=== PATIENT | male | born 1965 | race Caucasian/White ===

== ENCOUNTER 2017-01-28 20:09 | Inpatient (IN) | payer MEDICARE, MEDICAID, SELFPAY ==
[~2017-01-28 20:09] MED LIST: ACETAMINOPHEN325 M2 PO; ADVIL200 M2 PO; ALBUTEROL0.63 MG/1 IH; ALBUTEROL2.5 MG/3 M IH; AMIODARONE HCL200 M1 PO; AUGMENTIN 875-1 EAC2 PO; BENADRYL25 M3 PO; CARDIZEM CD240 M1 PO; CHEMO; COMBIVENT RESPIM4 G1 INH; COMPAZINE10 MG PO; COMPAZINE25 M1 PR; CPAP; CULTURELLE1 EAC1 PO; DIFLUCAN100 M1 PO; DILTIAZEM 24HR240 M3 PO; DULERA 200 MCG/13 G1 INH; ELIQUIS5 M1 PO; GUAIFENESIN400 M1 PO; IBUPROFEN600 M1 PO; IPRAT-ALBUT 0.5-3 ML IH; IPRAT-ALBUT 0.5-3 ML INH; IPRAT-ALBUT 0.5-3 ML NEB; KLOR-CON20 MEQ PO; LASIX20 M1 PO; LASIX40 M1 PO; LEVAQUIN750 M1 PO; MUCINEX1200 MG PO; MULTIVITAMINS1 EAC6 PO; NICOTINE PATCH1 EAC2 TD; NICOTINE PATCH1 EAC2 TP; NORCO 5-325 TA1 EACH PO; PACERONE200 M1 PO; PREDNISONE10 M1 PO; PREDNISONE5 M1 PO; PRILOSEC40 M1 PO; PROAIR RESPICL90 MCG INH; SILVADENE20 G1 TOP; SOTALOL80 M1 PO; SPIRIVA18 MC1 INH; SYMBICORT 160-1 PUFF INH; WELLBUTRIN SR150 M2 PO; XOPENEX1.25 MG/2 INH; [UNRECOGNIZED DRUG - REMARK]
[2017-01-28 21:37] LABS: BASO % 0.1 % (0-2); HCT-HEMATOCRIT 33.5 % (36.0-53.5); HGB-HEMOGLOBIN 10.7 gm/dl (13.5-17.0); IMMATURE GRANULOCYTES ABSOLUTE 0.13 tho/cmm (0-0.03); IMMATURE GRANULOCYTES PERCENT 0.8 % (0-0.3); LYMPH % 4.8 % (20-45); LYMPH ABSOLUTE COUNT 0.7 tho/cmm (0.8-4.5); MCH (MEAN CORPUSCULAR HGB) 32.9 pg (28.0-32.0); MCHC MEAN CORPUSCULAR HGB CONC 31.9 % (32.0-36.0); MCV (MEAN CELL VOLUME) 103.1 fl (82.0-96.0); MEAN PLATELET VOLUME 9.8 cmc (9.4-12.4); MONO % 6.4 % (0-12); NEUTROPHIL ABSOLUTE COUNT 13.7 tho/cmm (1.6-8.0); NEUTROPHIL-AUTOMATED 13.7 tho/cmm (1.6-8.0); NEUTROPHILS % 87.9 % (40-80); PLATELET COUNT 298 tho/cmm (150-450); RED BLOOD COUNT 3.25 mil/cmm (4.40-5.70); RED CELL DISTRIBUTION WIDTH 22.8 % (12.4-16.4); WHITE BLOOD COUNT 15.5 tho/cmm (4.0-10.0)
[2017-01-28 21:50] LABS: ANION GAP 13 mmol/L (0-20); BLOOD UREA NITROGEN 29 mg/dl (6-24); CARBON DIOXIDE-VENOUS 29 mmol/L (22-32); CHLORIDE 104 mmol/l (96-110); GLUCOSE 101 mg/dL (70-110); POTASSIUM 3.9 mmol/L (3.7-5.1); SODIUM 142 mmol/L (135-145); eGFR VALUE FOR BLACK 89 mL/Min
[2017-01-28] MEDS ORDERED: ULTRAM50 M1 PO (22:02)
[2017-01-29 06:25] LABS: BASO % 0.1 % (0-2); HCT-HEMATOCRIT 29.7 % (36.0-53.5); HGB-HEMOGLOBIN 9.4 gm/dl (13.5-17.0); IMMATURE GRANULOCYTES ABSOLUTE 0.07 tho/cmm (0-0.03); IMMATURE GRANULOCYTES PERCENT 0.7 % (0-0.3); LYMPH % 2.2 % (20-45); LYMPH ABSOLUTE COUNT 0.2 tho/cmm (0.8-4.5); MCH (MEAN CORPUSCULAR HGB) 32.3 pg (28.0-32.0); MCHC MEAN CORPUSCULAR HGB CONC 31.6 % (32.0-36.0); MCV (MEAN CELL VOLUME) 102.1 fl (82.0-96.0); MEAN PLATELET VOLUME 9.5 cmc (9.4-12.4); MONO % 2.9 % (0-12); MONOCYTE ABSOLUTE COUNT 0.3 tho/cmm (0.0-1.2); NEUTROPHIL ABSOLUTE COUNT 9.8 tho/cmm (1.6-8.0); NEUTROPHIL-AUTOMATED 9.8 tho/cmm (1.6-8.0); NEUTROPHILS % 94.1 % (40-80); PLATELET COUNT 232 tho/cmm (150-450); RED BLOOD COUNT 2.91 mil/cmm (4.40-5.70); RED CELL DISTRIBUTION WIDTH 22.7 % (12.4-16.4)
[2017-01-29 07:19] LABS: HCT-HEMATOCRIT 29.4 % (36.0-53.5); HGB-HEMOGLOBIN 9.5 gm/dl (13.5-17.0); MCH (MEAN CORPUSCULAR HGB) 32.6 pg (28.0-32.0); MCHC MEAN CORPUSCULAR HGB CONC 32.3 % (32.0-36.0); MEAN PLATELET VOLUME 9.8 cmc (9.4-12.4); NEUTROPHIL-AUTOMATED 10.2 tho/cmm (1.6-8.0); PLATELET COUNT 228 tho/cmm (150-450); RED BLOOD COUNT 2.91 mil/cmm (4.40-5.70); RED CELL DISTRIBUTION WIDTH 22.2 % (12.4-16.4); WHITE BLOOD COUNT 10.9 tho/cmm (4.0-10.0)
[2017-01-29 07:30] LABS: WHITE BLOOD COUNT 10.4 tho/cmm (4.0-10.0)
[2017-01-29 07:39] LABS: ALB/GLOB RATIO 1.1 (0.8-2.0); ALBUMIN 2.8 g/dl (3.5-5.0); ALKALINE PHOSPHATASE 121 U/L (33-138); ALT/SGPT 60 U/L (12-78); BILIRUBIN,TOTAL 0.6 mg/dl (0.0-1.5); BLOOD UREA NITROGEN 30 mg/dl (6-24); CALCIUM 8.2 mg/dl (8.5-10.5); CARBON DIOXIDE-VENOUS 30 mmol/L (22-32); CHLORIDE 103 mmol/l (96-110); GLUCOSE 118 mg/dL (70-110); SODIUM 141 mmol/L (135-145); eGFR VALUE FOR BLACK 89 mL/Min
[2017-01-29 07:43] LABS: ANION GAP 12 mmol/L (0-20); AST/SGOT 52 U/L (10-40); POTASSIUM 4.1 mmol/L (3.7-5.1)
[2017-01-30 04:43] LABS: ABG CO2 ARTERIAL 33 mmol/L (21-27); ARTERIAL BLD GAS O2 SATURATION 86 % (95-98); ARTERIAL BLOOD GAS PCO2 47 mmHg (32-45); ARTERIAL PO2 55 mmHg (70-100); BICARBONATE 32 mmol/L (21-28); BLOOD GAS BASE EXCESS 7 mM/L (-/+3); PH 7.44 Units (7.35-7.45)
[2017-01-30 07:50] LABS: BASO % 0.1 % (0-2); HCT-HEMATOCRIT 33.3 % (36.0-53.5); HGB-HEMOGLOBIN 10.5 gm/dl (13.5-17.0); LYMPH % 1.7 % (20-45); LYMPH ABSOLUTE COUNT 0.3 tho/cmm (0.8-4.5); MCH (MEAN CORPUSCULAR HGB) 32.8 pg (28.0-32.0); MCHC MEAN CORPUSCULAR HGB CONC 31.5 % (32.0-36.0); MCV (MEAN CELL VOLUME) 104.1 fl (82.0-96.0); MEAN PLATELET VOLUME 10.1 cmc (9.4-12.4); MONO % 5.8 % (0-12); MONOCYTE ABSOLUTE COUNT 0.9 tho/cmm (0.0-1.2); NEUTROPHILS % 92.4 % (40-80); PLATELET COUNT 255 tho/cmm (150-450); RED CELL DISTRIBUTION WIDTH 22.2 % (12.4-16.4); WHITE BLOOD COUNT 15.1 tho/cmm (4.0-10.0)
[2017-01-30 07:57] LABS: ANION GAP 16 mmol/L (0-20); BLOOD UREA NITROGEN 40 mg/dl (6-24); CALCIUM 8.5 mg/dl (8.5-10.5); CARBON DIOXIDE-VENOUS 28 mmol/L (22-32); CHLORIDE 101 mmol/l (96-110); GLUCOSE 101 mg/dL (70-110); POTASSIUM 4.1 mmol/L (3.7-5.1); SODIUM 141 mmol/L (135-145); eGFR VALUE FOR BLACK 80 mL/Min
[2017-01-31 04:40] LABS: ANION GAP 11 mmol/L (0-20); BLOOD UREA NITROGEN 45 mg/dl (6-24); CALCIUM 7.8 mg/dl (8.5-10.5); CARBON DIOXIDE-VENOUS 36 mmol/L (22-32); CHLORIDE 97 mmol/l (96-110); CREATININE 1.34 mg/dl (0.60-1.30); GLUCOSE 115 mg/dL (70-110); POTASSIUM 3.5 mmol/L (3.7-5.1); SODIUM 140 mmol/L (135-145); eGFR VALUE FOR BLACK 70 mL/Min
[2017-01-31 05:20] LABS: BASO % 0.1 % (0-2); HCT-HEMATOCRIT 31.6 % (36.0-53.5); IMMATURE GRANULOCYTES ABSOLUTE 0.15 tho/cmm (0-0.03); IMMATURE GRANULOCYTES PERCENT 1.1 % (0-0.3); LYMPH % 1.2 % (20-45); LYMPH ABSOLUTE COUNT 0.2 tho/cmm (0.8-4.5); MCH (MEAN CORPUSCULAR HGB) 32.4 pg (28.0-32.0); MCHC MEAN CORPUSCULAR HGB CONC 31.6 % (32.0-36.0); MCV (MEAN CELL VOLUME) 102.3 fl (82.0-96.0); MEAN PLATELET VOLUME 9.6 cmc (9.4-12.4); MONO % 6.6 % (0-12); MONOCYTE ABSOLUTE COUNT 0.9 tho/cmm (0.0-1.2); NEUTROPHIL ABSOLUTE COUNT 12.8 tho/cmm (1.6-8.0); NEUTROPHIL-AUTOMATED 12.8 tho/cmm (1.6-8.0); PLATELET COUNT 205 tho/cmm (150-450); RED BLOOD COUNT 3.09 mil/cmm (4.40-5.70); WHITE BLOOD COUNT 14.1 tho/cmm (4.0-10.0)
[2017-02-01 06:12] LABS: BASO % 0.1 % (0-2); HCT-HEMATOCRIT 31.6 % (36.0-53.5); HGB-HEMOGLOBIN 10.1 gm/dl (13.5-17.0); IMMATURE GRANULOCYTES ABSOLUTE 0.14 tho/cmm (0-0.03); IMMATURE GRANULOCYTES PERCENT 1.1 % (0-0.3); LYMPH % 2.7 % (20-45); LYMPH ABSOLUTE COUNT 0.4 tho/cmm (0.8-4.5); MCH (MEAN CORPUSCULAR HGB) 32.5 pg (28.0-32.0); MCV (MEAN CELL VOLUME) 101.6 fl (82.0-96.0); MEAN PLATELET VOLUME 10.2 cmc (9.4-12.4); MONOCYTE ABSOLUTE COUNT 0.7 tho/cmm (0.0-1.2); NEUTROPHIL ABSOLUTE COUNT 11.9 tho/cmm (1.6-8.0); NEUTROPHIL-AUTOMATED 11.9 tho/cmm (1.6-8.0); NEUTROPHILS % 91.1 % (40-80); PLATELET COUNT 176 tho/cmm (150-450); RED BLOOD COUNT 3.11 mil/cmm (4.40-5.70); RED CELL DISTRIBUTION WIDTH 21.9 % (12.4-16.4)
[2017-02-01 06:24] LABS: ANION GAP 12 mmol/L (0-20); BLOOD UREA NITROGEN 44 mg/dl (6-24); CALCIUM 7.7 mg/dl (8.5-10.5); CARBON DIOXIDE-VENOUS 37 mmol/L (22-32); CHLORIDE 96 mmol/l (96-110); CREATININE 1.19 mg/dl (0.60-1.30); GLUCOSE 168 mg/dL (70-110); POTASSIUM 3.1 mmol/L (3.7-5.1); SODIUM 142 mmol/L (135-145); eGFR VALUE FOR BLACK 81 mL/Min
[2017-02-02 06:40] LABS: ANION GAP 11 mmol/L (0-20); CALCIUM 7.9 mg/dl (8.5-10.5); CARBON DIOXIDE-VENOUS 36 mmol/L (22-32); CHLORIDE 96 mmol/l (96-110); SODIUM 139 mmol/L (135-145)
[2017-02-02 06:44] LABS: BLOOD UREA NITROGEN 45 mg/dl (6-24); CREATININE 1.11 mg/dl (0.60-1.30); GLUCOSE 118 mg/dL (70-110); eGFR VALUE FOR BLACK 88 mL/Min
[2017-02-02 07:11] LABS: POTASSIUM 3.7 mmol/L (3.7-5.1)
[2017-02-03 04:58] LABS: ANION GAP 9 mmol/L (0-20); BLOOD UREA NITROGEN 46 mg/dl (6-24); CALCIUM 7.8 mg/dl (8.5-10.5); CARBON DIOXIDE-VENOUS 37 mmol/L (22-32); CHLORIDE 99 mmol/l (96-110); CREATININE 1.17 mg/dl (0.60-1.30); GLUCOSE 119 mg/dL (70-110); POTASSIUM 3.7 mmol/L (3.7-5.1); SODIUM 141 mmol/L (135-145); eGFR VALUE FOR BLACK 83 mL/Min
[2017-02-04 04:57] LABS: INR 1.3 INR (0.9-1.1); PROTHROMBIN TIME 14.8 SECONDS (9.0-13.6)
[2017-02-04 05:09] LABS: ANION GAP 9 mmol/L (0-20); BLOOD UREA NITROGEN 49 mg/dl (6-24); CARBON DIOXIDE-VENOUS 36 mmol/L (22-32); CHLORIDE 100 mmol/l (96-110); CREATININE 1.23 mg/dl (0.60-1.30); GLUCOSE 110 mg/dL (70-110); MAGNESIUM 1.5 mg/dl (1.3-2.6); SODIUM 141 mmol/L (135-145); eGFR VALUE FOR BLACK 78 mL/Min
[2017-02-04 05:20] LABS: BASO % 0.2 % (0-2); EOS % 0.1 % (0-7); HGB-HEMOGLOBIN 10.3 gm/dl (13.5-17.0); IMMATURE GRANULOCYTES ABSOLUTE 0.16 tho/cmm (0-0.03); IMMATURE GRANULOCYTES PERCENT 1.3 % (0-0.3); LYMPH % 3.7 % (20-45); LYMPH ABSOLUTE COUNT 0.5 tho/cmm (0.8-4.5); MCH (MEAN CORPUSCULAR HGB) 32.9 pg (28.0-32.0); MCHC MEAN CORPUSCULAR HGB CONC 32.2 % (32.0-36.0); MCV (MEAN CELL VOLUME) 102.2 fl (82.0-96.0); MEAN PLATELET VOLUME 10.4 cmc (9.4-12.4); MONO % 4.9 % (0-12); MONOCYTE ABSOLUTE COUNT 0.6 tho/cmm (0.0-1.2); NEUTROPHIL ABSOLUTE COUNT 10.9 tho/cmm (1.6-8.0); NEUTROPHIL-AUTOMATED 10.9 tho/cmm (1.6-8.0); NEUTROPHILS % 89.8 % (40-80); PLATELET COUNT 122 tho/cmm (150-450); RED BLOOD COUNT 3.13 mil/cmm (4.40-5.70); RED CELL DISTRIBUTION WIDTH 21.4 % (12.4-16.4); WHITE BLOOD COUNT 12.2 tho/cmm (4.0-10.0)
[2017-02-05 03:23] LABS: INR 1.1 INR (0.9-1.1); PROTHROMBIN TIME 13.3 SECONDS (9.0-13.6)
[2017-02-05 03:52] LABS: BASO % 0.2 % (0-2); HCT-HEMATOCRIT 36.1 % (36.0-53.5); HGB-HEMOGLOBIN 11.5 gm/dl (13.5-17.0); LYMPH % 5.4 % (20-45); LYMPH ABSOLUTE COUNT 1.1 tho/cmm (0.8-4.5); MCH (MEAN CORPUSCULAR HGB) 32.6 pg (28.0-32.0); MCHC MEAN CORPUSCULAR HGB CONC 31.9 % (32.0-36.0); MCV (MEAN CELL VOLUME) 102.3 fl (82.0-96.0); MEAN PLATELET VOLUME 10.3 cmc (9.4-12.4); MONO % 8.4 % (0-12); MONOCYTE ABSOLUTE COUNT 1.6 tho/cmm (0.0-1.2); NEUTROPHIL ABSOLUTE COUNT 16.6 tho/cmm (1.6-8.0); NEUTROPHIL-AUTOMATED 16.6 tho/cmm (1.6-8.0); PLATELET COUNT 121 tho/cmm (150-450); RED BLOOD COUNT 3.53 mil/cmm (4.40-5.70); RED CELL DISTRIBUTION WIDTH 21.5 % (12.4-16.4)
[2017-02-05 04:01] LABS: ANION GAP 9 mmol/L (0-20); BLOOD UREA NITROGEN 54 mg/dl (6-24); CALCIUM 8.4 mg/dl (8.5-10.5); CARBON DIOXIDE-VENOUS 34 mmol/L (22-32); CHLORIDE 102 mmol/l (96-110); CREATININE 1.43 mg/dl (0.60-1.30); GLUCOSE 153 mg/dL (70-110); MAGNESIUM 1.6 mg/dl (1.3-2.6); SODIUM 141 mmol/L (135-145); WHITE BLOOD COUNT 19.5 tho/cmm (4.0-10.0); eGFR VALUE FOR BLACK 65 mL/Min
[2017-02-06 04:59] LABS: BASO % 0.2 % (0-2); EOS % 0.1 % (0-7); HCT-HEMATOCRIT 33.2 % (36.0-53.5); HGB-HEMOGLOBIN 10.7 gm/dl (13.5-17.0); IMMATURE GRANULOCYTES ABSOLUTE 0.15 tho/cmm (0-0.03); IMMATURE GRANULOCYTES PERCENT 1.1 % (0-0.3); LYMPH ABSOLUTE COUNT 0.4 tho/cmm (0.8-4.5); MCH (MEAN CORPUSCULAR HGB) 32.5 pg (28.0-32.0); MCHC MEAN CORPUSCULAR HGB CONC 32.2 % (32.0-36.0); MCV (MEAN CELL VOLUME) 100.9 fl (82.0-96.0); MEAN PLATELET VOLUME 10.9 cmc (9.4-12.4); MONO % 4.4 % (0-12); MONOCYTE ABSOLUTE COUNT 0.6 tho/cmm (0.0-1.2); NEUTROPHIL ABSOLUTE COUNT 11.9 tho/cmm (1.6-8.0); NEUTROPHIL-AUTOMATED 11.9 tho/cmm (1.6-8.0); NEUTROPHILS % 91.2 % (40-80); PLATELET COUNT 102 tho/cmm (150-450); RED BLOOD COUNT 3.29 mil/cmm (4.40-5.70); RED CELL DISTRIBUTION WIDTH 21.3 % (12.4-16.4); WHITE BLOOD COUNT 13.1 tho/cmm (4.0-10.0)
[2017-02-06 05:00] LABS: INR 1.3 INR (0.9-1.1); PROTHROMBIN TIME 15.4 SECONDS (9.0-13.6)
[2017-02-06 05:33] LABS: ANION GAP 10 mmol/L (0-20); BLOOD UREA NITROGEN 47 mg/dl (6-24); CARBON DIOXIDE-VENOUS 30 mmol/L (22-32); CHLORIDE 101 mmol/l (96-110); CREATININE 1.07 mg/dl (0.60-1.30); GLUCOSE 106 mg/dL (70-110); POTASSIUM 4.3 mmol/L (3.7-5.1); SODIUM 137 mmol/L (135-145); eGFR VALUE FOR BLACK >90 mL/Min
[2017-02-07 05:45] LABS: BASO % 0.1 % (0-2); HCT-HEMATOCRIT 29.6 % (36.0-53.5); HGB-HEMOGLOBIN 9.8 gm/dl (13.5-17.0); IMMATURE GRANULOCYTES ABSOLUTE 0.14 tho/cmm (0-0.03); IMMATURE GRANULOCYTES PERCENT 0.8 % (0-0.3); LYMPH % 2.1 % (20-45); LYMPH ABSOLUTE COUNT 0.4 tho/cmm (0.8-4.5); MCH (MEAN CORPUSCULAR HGB) 33.1 pg (28.0-32.0); MCHC MEAN CORPUSCULAR HGB CONC 33.1 % (32.0-36.0); MEAN PLATELET VOLUME 10.4 cmc (9.4-12.4); MONO % 3.7 % (0-12); MONOCYTE ABSOLUTE COUNT 0.6 tho/cmm (0.0-1.2); NEUTROPHIL ABSOLUTE COUNT 15.8 tho/cmm (1.6-8.0); NEUTROPHIL-AUTOMATED 15.8 tho/cmm (1.6-8.0); NEUTROPHILS % 93.3 % (40-80); PLATELET COUNT 93 tho/cmm (150-450); RED BLOOD COUNT 2.96 mil/cmm (4.40-5.70); RED CELL DISTRIBUTION WIDTH 21.1 % (12.4-16.4); WHITE BLOOD COUNT 16.9 tho/cmm (4.0-10.0)
[2017-02-07 05:49] LABS: ANION GAP 10 mmol/L (0-20); BLOOD UREA NITROGEN 50 mg/dl (6-24); CALCIUM 8.1 mg/dl (8.5-10.5); CARBON DIOXIDE-VENOUS 33 mmol/L (22-32); CHLORIDE 100 mmol/l (96-110); CREATININE 1.15 mg/dl (0.60-1.30); GLUCOSE 131 mg/dL (70-110); POTASSIUM 3.8 mmol/L (3.7-5.1); SODIUM 139 mmol/L (135-145); eGFR VALUE FOR BLACK 84 mL/Min
[2017-02-07 18:24] LABS: BASO % 0.1 % (0-2); HCT-HEMATOCRIT 35.5 % (36.0-53.5); HGB-HEMOGLOBIN 11.5 gm/dl (13.5-17.0); LYMPH % 3.8 % (20-45); LYMPH ABSOLUTE COUNT 1.2 tho/cmm (0.8-4.5); MCH (MEAN CORPUSCULAR HGB) 32.4 pg (28.0-32.0); MCHC MEAN CORPUSCULAR HGB CONC 32.4 % (32.0-36.0); MEAN PLATELET VOLUME 10.6 cmc (9.4-12.4); MONO % 4.7 % (0-12); MONOCYTE ABSOLUTE COUNT 1.5 tho/cmm (0.0-1.2); NEUTROPHIL ABSOLUTE COUNT 28.4 tho/cmm (1.6-8.0); NEUTROPHIL-AUTOMATED 28.4 tho/cmm (1.6-8.0); NEUTROPHILS % 90.4 % (40-80); PLATELET COUNT 125 tho/cmm (150-450); RED BLOOD COUNT 3.55 mil/cmm (4.40-5.70); RED CELL DISTRIBUTION WIDTH 20.8 % (12.4-16.4)
[2017-02-07 18:28] LABS: WHITE BLOOD COUNT 31.5 tho/cmm (4.0-10.0)
[2017-02-07 18:58] LABS: INR 1.3 INR (0.9-1.1); PROTHROMBIN TIME 15.8 SECONDS (9.0-13.6)
[2017-02-07 20:34] LABS: PF4 (HIT) ANTIBODY POSITIVE (NEGATIVE)
[2017-02-08 05:26] LABS: BASO % 0.1 % (0-2); HCT-HEMATOCRIT 32.1 % (36.0-53.5); HGB-HEMOGLOBIN 10.5 gm/dl (13.5-17.0); IMMATURE GRANULOCYTES ABSOLUTE 0.16 tho/cmm (0-0.03); IMMATURE GRANULOCYTES PERCENT 0.7 % (0-0.3); LYMPH % 4.8 % (20-45); LYMPH ABSOLUTE COUNT 1.2 tho/cmm (0.8-4.5); MCH (MEAN CORPUSCULAR HGB) 32.8 pg (28.0-32.0); MCHC MEAN CORPUSCULAR HGB CONC 32.7 % (32.0-36.0); MCV (MEAN CELL VOLUME) 100.3 fl (82.0-96.0); MEAN PLATELET VOLUME 10.8 cmc (9.4-12.4); MONO % 4.6 % (0-12); MONOCYTE ABSOLUTE COUNT 1.1 tho/cmm (0.0-1.2); NEUTROPHIL ABSOLUTE COUNT 21.5 tho/cmm (1.6-8.0); NEUTROPHIL-AUTOMATED 21.5 tho/cmm (1.6-8.0); NEUTROPHILS % 89.8 % (40-80); PLATELET COUNT 103 tho/cmm (150-450); RED CELL DISTRIBUTION WIDTH 20.9 % (12.4-16.4); WHITE BLOOD COUNT 23.9 tho/cmm (4.0-10.0)
[2017-02-08 13:45] LABS: ANION GAP 15 mmol/L (0-20); BLOOD UREA NITROGEN 44 mg/dl (6-24); CALCIUM 8.4 mg/dl (8.5-10.5); CARBON DIOXIDE-VENOUS 30 mmol/L (22-32); CHLORIDE 100 mmol/l (96-110); CREATININE 1.36 mg/dl (0.60-1.30); POTASSIUM 4.5 mmol/L (3.7-5.1); SODIUM 140 mmol/L (135-145); eGFR VALUE FOR BLACK 69 mL/Min
[2017-02-08 13:48] LABS: GLUCOSE 226 mg/dL (70-110)
[2017-02-08 17:06] LABS: ABG CO2 ARTERIAL 33 mmol/L (21-27); ARTERIAL BLD GAS O2 SATURATION 96 % (95-98); ARTERIAL BLOOD GAS PCO2 41 mmHg (32-45); ARTERIAL PO2 85 mmHg (70-100); BICARBONATE 31 mmol/L (21-28); BLOOD GAS BASE EXCESS 8 mM/L (-/+3); PH 7.49 Units (7.35-7.45)
[2017-02-09 05:28] LABS: BASO % 0.1 % (0-2); EOS % 0.3 % (0-7); EOSINOPHIL ABSOLUTE COUNT 0.1 tho/cmm (0.0-0.7); HCT-HEMATOCRIT 31.8 % (36.0-53.5); HGB-HEMOGLOBIN 10.4 gm/dl (13.5-17.0); IMMATURE GRANULOCYTES ABSOLUTE 0.24 tho/cmm (0-0.03); IMMATURE GRANULOCYTES PERCENT 1.3 % (0-0.3); LYMPH % 3.9 % (20-45); LYMPH ABSOLUTE COUNT 0.7 tho/cmm (0.8-4.5); MCH (MEAN CORPUSCULAR HGB) 33.2 pg (28.0-32.0); MCHC MEAN CORPUSCULAR HGB CONC 32.7 % (32.0-36.0); MCV (MEAN CELL VOLUME) 101.6 fl (82.0-96.0); MEAN PLATELET VOLUME 10.6 cmc (9.4-12.4); MONO % 6.3 % (0-12); MONOCYTE ABSOLUTE COUNT 1.2 tho/cmm (0.0-1.2); NEUTROPHIL ABSOLUTE COUNT 16.1 tho/cmm (1.6-8.0); NEUTROPHIL-AUTOMATED 16.1 tho/cmm (1.6-8.0); NEUTROPHILS % 88.1 % (40-80); PLATELET COUNT 104 tho/cmm (150-450); RED BLOOD COUNT 3.13 mil/cmm (4.40-5.70); WHITE BLOOD COUNT 18.3 tho/cmm (4.0-10.0)
[2017-02-09 05:33] LABS: ANION GAP 9 mmol/L (0-20); BLOOD UREA NITROGEN 40 mg/dl (6-24); CALCIUM 8.4 mg/dl (8.5-10.5); CARBON DIOXIDE-VENOUS 34 mmol/L (22-32); CHLORIDE 103 mmol/l (96-110); CREATININE 1.05 mg/dl (0.60-1.30); POTASSIUM 4.1 mmol/L (3.7-5.1); SODIUM 142 mmol/L (135-145); eGFR VALUE FOR BLACK >90 mL/Min
[2017-02-09 05:43] LABS: GLUCOSE 107 mg/dL (70-110)
[2017-02-10 05:51] LABS: BASO % 0.1 % (0-2); HCT-HEMATOCRIT 30.4 % (36.0-53.5); HGB-HEMOGLOBIN 9.9 gm/dl (13.5-17.0); IMMATURE GRANULOCYTES ABSOLUTE 0.15 tho/cmm (0-0.03); IMMATURE GRANULOCYTES PERCENT 0.8 % (0-0.3); LYMPH % 0.9 % (20-45); LYMPH ABSOLUTE COUNT 0.2 tho/cmm (0.8-4.5); MCH (MEAN CORPUSCULAR HGB) 33.1 pg (28.0-32.0); MCHC MEAN CORPUSCULAR HGB CONC 32.6 % (32.0-36.0); MCV (MEAN CELL VOLUME) 101.7 fl (82.0-96.0); MEAN PLATELET VOLUME 10.2 cmc (9.4-12.4); MONO % 5.2 % (0-12); NEUTROPHIL ABSOLUTE COUNT 17.5 tho/cmm (1.6-8.0); NEUTROPHIL-AUTOMATED 17.5 tho/cmm (1.6-8.0); PLATELET COUNT 108 tho/cmm (150-450); RED BLOOD COUNT 2.99 mil/cmm (4.40-5.70); RED CELL DISTRIBUTION WIDTH 20.5 % (12.4-16.4); WHITE BLOOD COUNT 18.8 tho/cmm (4.0-10.0)
[2017-02-10 06:03] LABS: ANION GAP 6 mmol/L (0-20); BLOOD UREA NITROGEN 34 mg/dl (6-24); CALCIUM 8.1 mg/dl (8.5-10.5); CARBON DIOXIDE-VENOUS 36 mmol/L (22-32); CHLORIDE 102 mmol/l (96-110); CREATININE 0.74 mg/dl (0.60-1.30); GLUCOSE 124 mg/dL (70-110); POTASSIUM 4.4 mmol/L (3.7-5.1); SODIUM 140 mmol/L (135-145); eGFR VALUE FOR BLACK >90 mL/Min
[2017-02-11 05:31] LABS: BASO % 0.1 % (0-2); EOS % 0.3 % (0-7); EOSINOPHIL ABSOLUTE COUNT 0.1 tho/cmm (0.0-0.7); HCT-HEMATOCRIT 30.5 % (36.0-53.5); IMMATURE GRANULOCYTES PERCENT 1.3 % (0-0.3); LYMPH % 1.2 % (20-45); LYMPH ABSOLUTE COUNT 0.2 tho/cmm (0.8-4.5); MCH (MEAN CORPUSCULAR HGB) 32.9 pg (28.0-32.0); MCHC MEAN CORPUSCULAR HGB CONC 32.8 % (32.0-36.0); MCV (MEAN CELL VOLUME) 100.3 fl (82.0-96.0); MEAN PLATELET VOLUME 10.3 cmc (9.4-12.4); MONO % 6.2 % (0-12); NEUTROPHIL ABSOLUTE COUNT 14.5 tho/cmm (1.6-8.0); NEUTROPHIL-AUTOMATED 14.5 tho/cmm (1.6-8.0); NEUTROPHILS % 90.9 % (40-80); PLATELET COUNT 94 tho/cmm (150-450); RED BLOOD COUNT 3.04 mil/cmm (4.40-5.70); RED CELL DISTRIBUTION WIDTH 20.2 % (12.4-16.4)
[2017-02-11 05:49] LABS: ANION GAP 9 mmol/L (0-20); BLOOD UREA NITROGEN 28 mg/dl (6-24); CALCIUM 8.4 mg/dl (8.5-10.5); CARBON DIOXIDE-VENOUS 33 mmol/L (22-32); CHLORIDE 101 mmol/l (96-110); CREATININE 0.78 mg/dl (0.60-1.30); GLUCOSE 111 mg/dL (70-110); POTASSIUM 4.1 mmol/L (3.7-5.1); SODIUM 139 mmol/L (135-145); eGFR VALUE FOR BLACK >90 mL/Min
[2017-02-12 04:51] LABS: BASO % 0.1 % (0-2); EOS % 0.5 % (0-7); EOSINOPHIL ABSOLUTE COUNT 0.1 tho/cmm (0.0-0.7); HCT-HEMATOCRIT 31.2 % (36.0-53.5); HGB-HEMOGLOBIN 10.2 gm/dl (13.5-17.0); IMMATURE GRANULOCYTES ABSOLUTE 0.19 tho/cmm (0-0.03); IMMATURE GRANULOCYTES PERCENT 1.1 % (0-0.3); LYMPH % 1.9 % (20-45); LYMPH ABSOLUTE COUNT 0.3 tho/cmm (0.8-4.5); MCHC MEAN CORPUSCULAR HGB CONC 32.7 % (32.0-36.0); MEAN PLATELET VOLUME 10.6 cmc (9.4-12.4); MONO % 6.5 % (0-12); MONOCYTE ABSOLUTE COUNT 1.2 tho/cmm (0.0-1.2); NEUTROPHILS % 89.9 % (40-80); PLATELET COUNT 111 tho/cmm (150-450); RED BLOOD COUNT 3.09 mil/cmm (4.40-5.70); RED CELL DISTRIBUTION WIDTH 20.5 % (12.4-16.4); WHITE BLOOD COUNT 17.8 tho/cmm (4.0-10.0)
[2017-02-13 06:29] LABS: BASO % 0.1 % (0-2); EOS % 0.6 % (0-7); EOSINOPHIL ABSOLUTE COUNT 0.1 tho/cmm (0.0-0.7); HCT-HEMATOCRIT 32.8 % (36.0-53.5); HGB-HEMOGLOBIN 10.9 gm/dl (13.5-17.0); IMMATURE GRANULOCYTES ABSOLUTE 0.19 tho/cmm (0-0.03); LYMPH % 3.8 % (20-45); LYMPH ABSOLUTE COUNT 0.7 tho/cmm (0.8-4.5); MCH (MEAN CORPUSCULAR HGB) 33.1 pg (28.0-32.0); MCHC MEAN CORPUSCULAR HGB CONC 33.2 % (32.0-36.0); MCV (MEAN CELL VOLUME) 99.7 fl (82.0-96.0); MEAN PLATELET VOLUME 9.7 cmc (9.4-12.4); MONO % 3.9 % (0-12); MONOCYTE ABSOLUTE COUNT 0.8 tho/cmm (0.0-1.2); NEUTROPHIL ABSOLUTE COUNT 17.2 tho/cmm (1.6-8.0); NEUTROPHIL-AUTOMATED 17.2 tho/cmm (1.6-8.0); NEUTROPHILS % 90.6 % (40-80); PLATELET COUNT 117 tho/cmm (150-450); RED BLOOD COUNT 3.29 mil/cmm (4.40-5.70); RED CELL DISTRIBUTION WIDTH 20.3 % (12.4-16.4)
[2017-02-13 06:44] LABS: ANION GAP 10 mmol/L (0-20); BLOOD UREA NITROGEN 31 mg/dl (6-24); CALCIUM 8.6 mg/dl (8.5-10.5); CARBON DIOXIDE-VENOUS 30 mmol/L (22-32); CHLORIDE 102 mmol/l (96-110); CREATININE 0.81 mg/dl (0.60-1.30); GLUCOSE 96 mg/dL (70-110); POTASSIUM 4.3 mmol/L (3.7-5.1); SODIUM 138 mmol/L (135-145); eGFR VALUE FOR BLACK >90 mL/Min
[2017-02-13] MEDS ORDERED: BROVANA15 MCG/22 INH (13:46)
[2017-02-13] MEDS ORDERED: CATAPRES0.2 M1 PO (13:48)
[2017-02-13] MEDS ORDERED: BYSTOLIC5 M1 PO (13:49)
[2017-02-13] MEDS ORDERED: POTASSIUM CHLO20 ME3 PO (13:50)
[2017-02-13] MEDS ORDERED: LASIX20 M1 PO (13:50)
[2017-02-13] MEDS ORDERED: DALIRESP500 MC1 PO (13:51)
[2017-02-13] MEDS ORDERED: PULMICORT0.5 MG/22 NEB (13:53)
[2017-02-13] MEDS ORDERED: DELTASONE20 MG PO (13:55)
[2017-02-13] MEDS ORDERED: RISAMINE OINTM113 G1 TOP (13:56)
[2017-02-13] MEDS ORDERED: AUGMENTIN 875-1 EAC2 PO (13:57)
[2017-02-13] MEDS ORDERED: FLOMAX0.4 M1 PO (13:59)
[2017-02-13] MEDS ORDERED: ALBUTEROL NEB (14:00)
== END 2017-02-13 16:48 | DRG 193 ==
LOC: EDMED 20:09 → EMR2 22:31 → 5WF 23:52 → PCUA 02-07 12:45
PROVIDERS: Emergency Medicine; Family Medicine; Internal Medicine; Internal Medicine Cardiovascular Disease; Internal Medicine Critical Care Medicine; Internal Medicine Hematology & Oncology; Nurse Practitioner Family; ADMIT Internal Medicine
PROC: 5A09457 Assistance with Respiratory Ventilation, 24-96 Consecutive Hours, Continuous Positive Airway Pressure (ICD-10-PCS; principal; 2017-01-29)
DX: J18.9 Pneumonia, unspecified organism (principal); J96.21 Acute and chronic respiratory failure with hypoxia; I47.2 Ventricular tachycardia; D61.818 Other pancytopenia; B37.0 Candidal stomatitis; C79.00 Secondary malignant neoplasm of unspecified kidney and renal pelvis; C79.51 Secondary malignant neoplasm of bone; J96.22 Acute and chronic respiratory failure with hypercapnia; J44.1 Chronic obstructive pulmonary disease with (acute) exacerbation; C34.90 Malignant neoplasm of unspecified part of unspecified bronchus or lung; I31.3 Pericardial effusion (noninflammatory); I50.30 Unspecified diastolic (congestive) heart failure; E66.9 Obesity, unspecified; D64.81 Anemia due to antineoplastic chemotherapy; E87.6 Hypokalemia; F41.9 Anxiety disorder, unspecified; G47.33 Obstructive sleep apnea (adult) (pediatric); I25.10 Atherosclerotic heart disease of native coronary artery without angina pectoris; I48.0 Paroxysmal atrial fibrillation; R21 Rash and other nonspecific skin eruption; Z51.5 Encounter for palliative care; Z79.01 Long term (current) use of anticoagulants; Z79.52 Long term (current) use of systemic steroids; F17.210 Nicotine dependence, cigarettes, uncomplicated; Z68.36 Body mass index [BMI] 36.0-36.9, adult; Z99.81 Dependence on supplemental oxygen; D69.6 Thrombocytopenia, unspecified
CPT/HCPCS: J0282; J1160; J1650; J1652; J1940; J1956; J2185; J2920; J2930; J3370; J7030; J7512; Q9967

== ENCOUNTER 2017-04-08 10:56 | Inpatient (IN) | payer MEDICARE, MEDICAID ==
[~2017-04-08 10:56] MED LIST changes: +ALBUTEROL NEB; +BROVANA15 MCG/22 INH; +BYSTOLIC5 M1 PO; +CATAPRES0.2 M1 PO; +DALIRESP500 MC1 PO; +DELTASONE20 MG PO; +FLOMAX0.4 M1 PO; +POTASSIUM CHLO20 ME3 PO; +PULMICORT0.5 MG/22 NEB; +RISAMINE OINTM113 G1 TOP; +ULTRAM50 M1 PO
[2017-04-08 12:09] LABS: HCT-HEMATOCRIT 29.6 % (36.0-53.5); HGB-HEMOGLOBIN 9.5 gm/dl (13.5-17.0); IMMATURE GRANULOCYTES ABSOLUTE 0.06 tho/cmm (0-0.03); IMMATURE GRANULOCYTES PERCENT 0.5 % (0-0.3); LYMPH % 2.4 % (20-45); LYMPH ABSOLUTE COUNT 0.3 tho/cmm (0.8-4.5); MCH (MEAN CORPUSCULAR HGB) 31.7 pg (28.0-32.0); MCHC MEAN CORPUSCULAR HGB CONC 32.1 % (32.0-36.0); MCV (MEAN CELL VOLUME) 98.7 fl (82.0-96.0); MEAN PLATELET VOLUME 9.9 cmc (9.4-12.4); MONO % 6.5 % (0-12); MONOCYTE ABSOLUTE COUNT 0.8 tho/cmm (0.0-1.2); NEUTROPHIL ABSOLUTE COUNT 11.3 tho/cmm (1.6-8.0); NEUTROPHIL-AUTOMATED 11.3 tho/cmm (1.6-8.0); NEUTROPHILS % 90.6 % (40-80); PLATELET COUNT 233 tho/cmm (150-450); RED CELL DISTRIBUTION WIDTH 15.8 % (12.4-16.4); WHITE BLOOD COUNT 12.5 tho/cmm (4.0-10.0)
[2017-04-08 12:21] LABS: ABG CO2 ARTERIAL 28 mmol/L (21-27); ARTERIAL BLD GAS O2 SATURATION 95 % (95-98); ARTERIAL BLOOD GAS PCO2 50 mmHg (32-45); ARTERIAL PO2 83 mmHg (70-100); BICARBONATE 26 mmol/L (21-28); BLOOD GAS BASE EXCESS 1 mM/L (-/+3); PH 7.35 Units (7.35-7.45)
[2017-04-08 12:45] LABS: ALBUMIN 3.3 g/dl (3.5-5.0); ALKALINE PHOSPHATASE 117 U/L (33-138); ALT/SGPT 34 U/L (12-78); ANION GAP 16 mmol/L (0-20); AST/SGOT 27 U/L (10-40); BILIRUBIN,TOTAL 0.5 mg/dl (0.0-1.5); BLOOD UREA NITROGEN 43 mg/dl (6-24); CALCIUM 9.1 mg/dl (8.5-10.5); CARBON DIOXIDE-VENOUS 28 mmol/L (22-32); CHLORIDE 102 mmol/l (96-110); GLUCOSE 96 mg/dL (70-110); POTASSIUM 3.9 mmol/L (3.7-5.1); SODIUM 142 mmol/L (135-145); eGFR VALUE FOR BLACK 61 mL/Min
[2017-04-08] MEDS ORDERED: MINOCYCLINE HC100 M1 PO (15:03)
[2017-04-08] MEDS ORDERED: CLEOCIN T30 ML TOP (15:04)
[2017-04-08] MEDS ORDERED: EFFEXOR XR75 M1 PO (15:05)
[2017-04-08] MEDS ORDERED: CYCLOBENZAPRINE10 M1 PO (15:05)
[2017-04-08] MEDS ORDERED: NAPROXEN375 M1 (15:06)
[2017-04-08] MEDS ORDERED: ULTRAM50 M1 PO (15:06)
[2017-04-08 16:44] LABS: URINE BILIRUBIN NEGATIVE (NEG); URINE BLOOD MODERATE (NEG); URINE GLUCOSE (UA) NEGATIVE (NEG); URINE KETONE NEGATIVE (NEG); URINE LEUKOCYTE ESTERASE POSITIVE (NEG); URINE NITRITE NEGATIVE (NEG); URINE PROTEIN MODERATE (NEG); URINE SPECIFIC GRAVITY 1.025 (1.003-1.030)
[2017-04-08 16:45] LABS: URINE APPEARANCE HAZY; URINE COLOR DARK YELLOW
[2017-04-08 16:47] LABS: C-REACTIVE PROTEIN 4.3 mg/dl (0-0.9)
[2017-04-08 16:52] LABS: URINE AMORPHOUS 1+; URINE EPITHELIAL CELLS 0 /[HPF] (0-10); URINE WBC RARE /[HPF] (0-5)
[2017-04-09 03:13] LABS: ARTERIAL BLD GAS O2 SATURATION 98 % (95-98); ARTERIAL BLOOD GAS PCO2 56 mmHg (32-45); ARTERIAL PO2 135 mmHg (70-100); PH 7.27 Units (7.35-7.45)
[2017-04-09 03:14] LABS: ABG CO2 ARTERIAL 27 mmol/L (21-27); BICARBONATE 25 mmol/L (21-28); BLOOD GAS BASE EXCESS -2 mM/L (-/+3)
[2017-04-09 04:06] LABS: HCT-HEMATOCRIT 32.5 % (36.0-53.5); HGB-HEMOGLOBIN 10.4 gm/dl (13.5-17.0); IMMATURE GRANULOCYTES ABSOLUTE 0.05 tho/cmm (0-0.03); IMMATURE GRANULOCYTES PERCENT 0.4 % (0-0.3); LYMPH % 1.9 % (20-45); LYMPH ABSOLUTE COUNT 0.2 tho/cmm (0.8-4.5); MCH (MEAN CORPUSCULAR HGB) 31.8 pg (28.0-32.0); MCV (MEAN CELL VOLUME) 99.4 fl (82.0-96.0); MEAN PLATELET VOLUME 9.7 cmc (9.4-12.4); MONO % 3.2 % (0-12); MONOCYTE ABSOLUTE COUNT 0.4 tho/cmm (0.0-1.2); NEUTROPHIL ABSOLUTE COUNT 10.6 tho/cmm (1.6-8.0); NEUTROPHIL-AUTOMATED 10.6 tho/cmm (1.6-8.0); NEUTROPHILS % 94.5 % (40-80); PLATELET COUNT 244 tho/cmm (150-450); RED BLOOD COUNT 3.27 mil/cmm (4.40-5.70); RED CELL DISTRIBUTION WIDTH 15.6 % (12.4-16.4); WHITE BLOOD COUNT 11.2 tho/cmm (4.0-10.0)
[2017-04-09 04:17] LABS: ANION GAP 16 mmol/L (0-20); BLOOD UREA NITROGEN 41 mg/dl (6-24); CALCIUM 8.5 mg/dl (8.5-10.5); CARBON DIOXIDE-VENOUS 25 mmol/L (22-32); CHLORIDE 105 mmol/l (96-110); CREATININE 1.25 mg/dl (0.60-1.30); GLUCOSE 98 mg/dL (70-110); SODIUM 142 mmol/L (135-145); eGFR VALUE FOR BLACK 76 mL/Min
[2017-04-10 04:39] LABS: HCT-HEMATOCRIT 27.7 % (36.0-53.5); HGB-HEMOGLOBIN 8.9 gm/dl (13.5-17.0); IMMATURE GRANULOCYTES ABSOLUTE 0.02 tho/cmm (0-0.03); IMMATURE GRANULOCYTES PERCENT 0.2 % (0-0.3); LYMPH % 1.3 % (20-45); LYMPH ABSOLUTE COUNT 0.1 tho/cmm (0.8-4.5); MCH (MEAN CORPUSCULAR HGB) 31.7 pg (28.0-32.0); MCHC MEAN CORPUSCULAR HGB CONC 32.1 % (32.0-36.0); MCV (MEAN CELL VOLUME) 98.6 fl (82.0-96.0); MEAN PLATELET VOLUME 9.6 cmc (9.4-12.4); MONO % 3.2 % (0-12); MONOCYTE ABSOLUTE COUNT 0.3 tho/cmm (0.0-1.2); NEUTROPHIL ABSOLUTE COUNT 9.4 tho/cmm (1.6-8.0); NEUTROPHIL-AUTOMATED 9.4 tho/cmm (1.6-8.0); NEUTROPHILS % 95.3 % (40-80); PLATELET COUNT 190 tho/cmm (150-450); RED BLOOD COUNT 2.81 mil/cmm (4.40-5.70); RED CELL DISTRIBUTION WIDTH 15.7 % (12.4-16.4); WHITE BLOOD COUNT 9.9 tho/cmm (4.0-10.0)
[2017-04-10 05:15] LABS: ANION GAP 10 mmol/L (0-20); BLOOD UREA NITROGEN 31 mg/dl (6-24); CALCIUM 8.1 mg/dl (8.5-10.5); CARBON DIOXIDE-VENOUS 29 mmol/L (22-32); CHLORIDE 105 mmol/l (96-110); CREATININE 0.98 mg/dl (0.60-1.30); GLUCOSE 116 mg/dL (70-110); POTASSIUM 3.3 mmol/L (3.7-5.1); SODIUM 141 mmol/L (135-145); eGFR VALUE FOR BLACK >90 mL/Min
[2017-04-10 13:53] LABS: ABG CO2 ARTERIAL 30 mmol/L (21-27); ARTERIAL BLD GAS O2 SATURATION 95 % (95-98); ARTERIAL BLOOD GAS PCO2 56 mmHg (32-45); ARTERIAL PO2 83 mmHg (70-100); BICARBONATE 28 mmol/L (21-28); BLOOD GAS BASE EXCESS 2 mM/L (-/+3); PH 7.32 Units (7.35-7.45)
[2017-04-11 04:02] LABS: HCT-HEMATOCRIT 28.4 % (36.0-53.5); HGB-HEMOGLOBIN 9.2 gm/dl (13.5-17.0); IMMATURE GRANULOCYTES ABSOLUTE 0.02 tho/cmm (0-0.03); IMMATURE GRANULOCYTES PERCENT 0.3 % (0-0.3); LYMPH % 1.8 % (20-45); LYMPH ABSOLUTE COUNT 0.1 tho/cmm (0.8-4.5); MCH (MEAN CORPUSCULAR HGB) 31.7 pg (28.0-32.0); MCHC MEAN CORPUSCULAR HGB CONC 32.4 % (32.0-36.0); MCV (MEAN CELL VOLUME) 97.9 fl (82.0-96.0); MEAN PLATELET VOLUME 9.6 cmc (9.4-12.4); MONO % 3.7 % (0-12); MONOCYTE ABSOLUTE COUNT 0.3 tho/cmm (0.0-1.2); NEUTROPHIL ABSOLUTE COUNT 7.2 tho/cmm (1.6-8.0); NEUTROPHIL-AUTOMATED 7.2 tho/cmm (1.6-8.0); NEUTROPHILS % 94.2 % (40-80); PLATELET COUNT 179 tho/cmm (150-450); RED CELL DISTRIBUTION WIDTH 15.4 % (12.4-16.4); WHITE BLOOD COUNT 7.6 tho/cmm (4.0-10.0)
[2017-04-11 04:17] LABS: ANION GAP 11 mmol/L (0-20); BLOOD UREA NITROGEN 19 mg/dl (6-24); CARBON DIOXIDE-VENOUS 29 mmol/L (22-32); CHLORIDE 105 mmol/l (96-110); CREATININE 0.76 mg/dl (0.60-1.30); GLUCOSE 100 mg/dL (70-110); POTASSIUM 3.3 mmol/L (3.7-5.1); SODIUM 142 mmol/L (135-145); eGFR VALUE FOR BLACK >90 mL/Min
[2017-04-11 04:51] LABS: ABG CO2 ARTERIAL 30 mmol/L (21-27); ARTERIAL BLD GAS O2 SATURATION 95 % (95-98); ARTERIAL BLOOD GAS PCO2 45 mmHg (32-45); ARTERIAL PO2 76 mmHg (70-100); BICARBONATE 29 mmol/L (21-28); BLOOD GAS BASE EXCESS 5 mM/L (-/+3); PH 7.43 Units (7.35-7.45)
[2017-04-12 03:43] LABS: HCT-HEMATOCRIT 30.1 % (36.0-53.5); HGB-HEMOGLOBIN 9.8 gm/dl (13.5-17.0); IMMATURE GRANULOCYTES ABSOLUTE 0.04 tho/cmm (0-0.03); IMMATURE GRANULOCYTES PERCENT 0.4 % (0-0.3); LYMPH % 2.1 % (20-45); LYMPH ABSOLUTE COUNT 0.2 tho/cmm (0.8-4.5); MCHC MEAN CORPUSCULAR HGB CONC 32.6 % (32.0-36.0); MCV (MEAN CELL VOLUME) 98.4 fl (82.0-96.0); MEAN PLATELET VOLUME 9.5 cmc (9.4-12.4); MONO % 3.2 % (0-12); MONOCYTE ABSOLUTE COUNT 0.3 tho/cmm (0.0-1.2); NEUTROPHILS % 94.3 % (40-80); PLATELET COUNT 170 tho/cmm (150-450); RED BLOOD COUNT 3.06 mil/cmm (4.40-5.70); RED CELL DISTRIBUTION WIDTH 15.7 % (12.4-16.4); WHITE BLOOD COUNT 10.6 tho/cmm (4.0-10.0)
[2017-04-12 03:51] LABS: ANION GAP 11 mmol/L (0-20); BLOOD UREA NITROGEN 20 mg/dl (6-24); CALCIUM 7.8 mg/dl (8.5-10.5); CARBON DIOXIDE-VENOUS 29 mmol/L (22-32); CHLORIDE 107 mmol/l (96-110); CREATININE 1.04 mg/dl (0.60-1.30); POTASSIUM 3.3 mmol/L (3.7-5.1); SODIUM 144 mmol/L (135-145); eGFR VALUE FOR BLACK >90 mL/Min
[2017-04-12 04:04] LABS: GLUCOSE 175 mg/dL (70-110)
[2017-04-13 04:03] LABS: ANION GAP 10 mmol/L (0-20); BLOOD UREA NITROGEN 19 mg/dl (6-24); CALCIUM 7.7 mg/dl (8.5-10.5); CARBON DIOXIDE-VENOUS 30 mmol/L (22-32); CHLORIDE 107 mmol/l (96-110); CREATININE 0.88 mg/dl (0.60-1.30); GLUCOSE 131 mg/dL (70-110); MAGNESIUM 1.9 mg/dl (1.8-2.6); SODIUM 144 mmol/L (135-145); eGFR VALUE FOR BLACK >90 mL/Min
--- NOTE | 2017-04-13 11:52 | NUR ---
POA, DNR/DNI forms completed and faxed to PCP and Pulmonary doctor. Copies to chart and for pt/POA.
[2017-04-14 03:31] LABS: ANION GAP 11 mmol/L (0-20); BLOOD UREA NITROGEN 15 mg/dl (6-24); CALCIUM 7.5 mg/dl (8.5-10.5); CARBON DIOXIDE-VENOUS 32 mmol/L (22-32); CHLORIDE 105 mmol/l (96-110); CREATININE 0.85 mg/dl (0.60-1.30); GLUCOSE 104 mg/dL (70-110); POTASSIUM 3.5 mmol/L (3.7-5.1); SODIUM 144 mmol/L (135-145); eGFR VALUE FOR BLACK >90 mL/Min
[2017-04-14] MEDS ORDERED: XANAX0.5 M1 PO (16:00)
[2017-04-14] MEDS ORDERED: POTASSIUM CHLO20 ME3 PO (16:01)
[2017-04-15 03:57] LABS: ANION GAP 9 mmol/L (0-20); BLOOD UREA NITROGEN 15 mg/dl (6-24); CALCIUM 8.1 mg/dl (8.5-10.5); CARBON DIOXIDE-VENOUS 36 mmol/L (22-32); CHLORIDE 102 mmol/l (96-110); CREATININE 0.73 mg/dl (0.60-1.30); GLUCOSE 109 mg/dL (70-110); POTASSIUM 4.3 mmol/L (3.7-5.1); SODIUM 143 mmol/L (135-145); eGFR VALUE FOR BLACK >90 mL/Min
== END 2017-04-15 13:05 | disposition home health service (06) | DRG 190 ==
LOC: EDMED 10:56 → EMR2 14:30 → CCU 19:00 → PCUA 04-12 07:58
PROVIDERS: Emergency Medicine; Family Medicine; Hospitalist; Internal Medicine Cardiovascular Disease; ADMIT Internal Medicine
PROC: 5A09357 Assistance with Respiratory Ventilation, Less than 24 Consecutive Hours, Continuous Positive Airway Pressure (ICD-10-PCS; principal; 2017-04-08)
DX: J44.1 Chronic obstructive pulmonary disease with (acute) exacerbation (principal); G92 Toxic encephalopathy; J96.21 Acute and chronic respiratory failure with hypoxia; N17.9 Acute kidney failure, unspecified; C79.00 Secondary malignant neoplasm of unspecified kidney and renal pelvis; C79.51 Secondary malignant neoplasm of bone; I48.0 Paroxysmal atrial fibrillation; C34.90 Malignant neoplasm of unspecified part of unspecified bronchus or lung; R00.1 Bradycardia, unspecified; D63.0 Anemia in neoplastic disease; J96.22 Acute and chronic respiratory failure with hypercapnia; R44.3 Hallucinations, unspecified; F17.210 Nicotine dependence, cigarettes, uncomplicated; Z79.01 Long term (current) use of anticoagulants; F41.9 Anxiety disorder, unspecified; G89.29 Other chronic pain; F19.90 Other psychoactive substance use, unspecified, uncomplicated; G47.33 Obstructive sleep apnea (adult) (pediatric); I25.10 Atherosclerotic heart disease of native coronary artery without angina pectoris; Z99.81 Dependence on supplemental oxygen; Z66 Do not resuscitate; T45.1X5A Adverse effect of antineoplastic and immunosuppressive drugs, initial encounter; E87.6 Hypokalemia; H57.02 Anisocoria
CPT/HCPCS: G0480; J0360; J1630; J1650; J1815; J1956; J2060; J2270; J2543; J2920; J2930; J3370; J3475; J3480; J7030; J7512